=== PATIENT | female | born 1940 | race Caucasian/White ===

== ENCOUNTER 2021-07-14 20:19 | Emergency (ER) | payer OTHER, MEDICAID ==
[~2021-07-14] VITALS: Ht 165.1 cm; Wt 77.1 kg
[2021-07-14 20:24] VITALS: BP_SYST 109
--- NOTE | 2021-07-14 20:24 | NUR ---
Patient to ER bed GRACE to gown for evaluation. Side rails up. Report given to SREE VILLA.
--- NOTE | 2021-07-14 20:52 | NUR ---
Dr. Orozco at bedside and place G-tube size 20 FR
--- NOTE | 2021-07-14 21:01 | NUR ---
X-ray at bedside.
[2021-07-14] MEDS ORDERED: GASTROGRAFIN 120 ML ONE (21:02)
--- NOTE | 2021-07-14 21:08 | NUR ---
Attempted to call [facility], no one sheepskin pickler phone and can not leave message.
--- NOTE | 2021-07-14 21:12 | NUR ---
Patient's caregiver given written and verbal discharge instructions and verbalizes understanding. ER MD discussed with patient's caregiver the results and treatment provided. Patient in stable condition. ID arm band removed. No Rx given. Patient's caregiver educated on pain management and to follow up with PMD. Pain Scale 0/10. Opportunity for questions provided and answered.
[2021-07-14 21:14] VITALS: BP_SYST 109
--- NOTE | 2021-07-14 21:14 | NUR ---
Patient will transfer back to facility by BLS/EMS.
== END 2021-07-14 21:14 | disposition home or self-care (01) ==
LOC: SED 20:19
DX: K94.23 Gastrostomy malfunction (principal)
CPT/HCPCS: 43762; 74240; 99284; Q9963

== ENCOUNTER 2022-07-03 20:42 | Emergency (ER) | payer OTHER, MEDICAID ==
[~2022-07-03] VITALS: Ht 162.6 cm; Wt 79.4 kg
[2022-07-03 20:49] VITALS: BP_SYST 98
--- NOTE | 2022-07-03 20:54 | NUR ---
PT HERE BIB BLS TRANSPORT FOR GTUBE REPLACEMENT, PER REPORT PT GTUB HAS BEEN DISLODGED SINCE THIS MORNING. PENDING MD MARTINI
--- NOTE | 2022-07-04 00:24 | NUR ---
ER at bedside examining patient.
--- NOTE | 2022-07-04 00:30 | NUR ---
Gtube replaced by Sisi. Pt tolerated procedure well. 18F GTube inserted. Xray ordered for placement confirmation.
[2022-07-04] MEDS ORDERED: GASTROGRAFIN 120 ML ONE (01:04)
--- NOTE | 2022-07-04 02:17 | NUR ---
S Transportation arranged for machine operator hop picker back to [facility]. ETA is [phone].
--- NOTE | 2022-07-04 03:00 | NUR ---
Pt resting comfortably in bed, no acute signs of distress. Breathing adequately on RA. VSS.
--- NOTE | 2022-07-04 05:58 | NUR ---
SPOKE TO [facility], [facility] FOR PICK-UP AT APROX 0625.
[2022-07-04 06:49] VITALS: BP_SYST 140
--- NOTE | 2022-07-04 06:50 | NUR ---
Patient transferred back to [facility]. Copy of nursing notes/discharge instructions sent with patient. Report called to Flora at receiving facility. Pt care endorsed to EMT's from [facility].
== END 2022-07-04 06:50 | disposition home or self-care (01) ==
LOC: SED 20:42
DX: Z43.1 Encounter for attention to gastrostomy (principal); E11.9 Type 2 diabetes mellitus without complications; Z79.899 Other long term (current) drug therapy
CPT/HCPCS: 99285; 43762; 74240; Q9963

== ENCOUNTER 2022-08-05 13:25 | Emergency (ER) | payer OTHER, MEDICAID ==
[~2022-08-05] VITALS: Ht 167.6 cm; Wt 81.6 kg
[~2022-08-05 13:25] MED LIST: ACET-73 GT; ACET325T GT; ALEN10TA25 GT; ASCO500T20 GT; ASPI-1155 GT; BISA10SU61 RC; COR3.125 GT; FURO-150 GT; INSU100V42 SQ; INSU100V9 SQ; LIP40 GT; LOSA50TA3 GT; MAGN24002 GT; MULT-1089 GT; TRAM50TA2 PO
[2022-08-05 13:30] VITALS: BP_SYST 152
--- NOTE | 2022-08-05 13:30 | NUR ---
Patient to ER bed HALLWAY to gown for evaluation. Side rails up.
--- NOTE | 2022-08-05 13:35 | NUR ---
PT BIBA FROM [facility] FOR BLEEDING FROM G-TUBE, ON ARRIVAL NO BLEEDING NOTED. VSS
--- NOTE | 2022-08-05 14:32 | NUR ---
ER DR. KENNEDY EXAMINING PT
--- NOTE | 2022-08-05 14:41 | NUR ---
Patient given written and verbal discharge instructions and verbalizes understanding. ER MD discussed with patient the results and treatment provided. Patient in stable condition. ID arm band removed. NO Rx given. Patient educated on pain management and to follow up with PMD. Pain Scale 0/10. Opportunity for questions provided and answered. Medication side effect fact sheet provided.
--- NOTE | 2022-08-05 14:45 | NUR ---
REPORT GIVEN TO ORLIN FOR TRANSPORT BACK TO [facility]
== END 2022-08-05 14:37 ==
LOC: SED 13:25
DX: K94.23 Gastrostomy malfunction (principal); E11.9 Type 2 diabetes mellitus without complications; I10 Essential (primary) hypertension; E78.5 Hyperlipidemia, unspecified; Z79.4 Long term (current) use of insulin; Z79.899 Other long term (current) drug therapy
CPT/HCPCS: 99281

== ENCOUNTER 2023-04-15 05:19 | Inpatient (IN) | payer OTHER, MEDICAID ==
[~2023-04-15] VITALS: Ht 162.6 cm; Wt 86.2 kg
[2023-04-15 05:30] VITALS: BP_SYST 134; PULSE 84; RESP 20; TEMP 98.4; O2SAT 99
--- NOTE | 2023-04-15 05:30 | NUR ---
PT BIB AMBULANCE - BLS FROM [facility]. PT A&Ox1, ABLE TO VERBALIZE PAIN. PER BLS STAFF PT'S GTUBE BLEEDING. BLOOD NOTED ON GAUZE AND REDNESS ON PT'S SKIN AROUND GTUBE. SAFETY PRECAUTIONS IN PLACE.
--- NOTE | 2023-04-15 06:10 | NUR ---
ER Dr. SALDANA at bedside examining patient.
[2023-04-15 06:13] LABS: BASOPHILS % (AUTO) 0.3 % (0.0-2.0); EOSINOPHILS # (AUTO) 0.1 K/uL (0.0-0.4); EOSINOPHILS % (AUTO) 1.1 % (0.0-4.0); HEMATOCRIT 36.4 % (36-48); HEMOGLOBIN 11.3 g/dL (12.0-16.0); LYMPHOCYTES # (AUTO) 2.2 K/uL (1.0-5.5); LYMPHOCYTES % (AUTO) 15.7 % (20.5-51.5); MEAN CORPUSCULAR HEMOGLOBIN 25 pg (27-31); MEAN CORPUSCULAR HGB CONC 31 % (32-36); MEAN CORPUSCULAR VOLUME 80 fL (79.0-98.0); MONOCYTES % (AUTO) 7.3 % (1.7-9.3); NEUTROPHILS # (AUTO) 10.4 K/uL (1.8-7.7); NEUTROPHILS % (AUTO) 75.6 % (40.0-70.0); PLATELET COUNT (AUTO) 503 K/uL (130-430); RED BLOOD CELL COUNT(AUTO) 4.55 MIL/uL (4.2-6.2); RED CELL DISTRIBUTION WIDTH 16.6 % (9.0-15.0); WHITE BLOOD COUNT (AUTO) 13.8 K/uL (4.8-10.8)
[2023-04-15 06:26] LABS: ANION GAP 5 (5-15); CALCIUM 8.3 mg/dL (8.4-11.0); CHLORIDE 95 mmol/L (98-107); CREATININE 0.45 mg/dL (0.55-1.30); GLUCOSE 168 mg/dL (74-106); UREA NITROGEN, BLOOD 16 mg/dL (8-21)
[2023-04-15 06:27] LABS: PROTHROMBIN TIME 10.2 SECS (9.5-12.5)
[2023-04-15 06:30] LABS: ALANINE AMINOTRANSFERASE 21 U/L (12-78); ALBUMIN 2.7 g/dL (3.4-4.8); ASPARTATE AMINOTRANSFERASE 21 U/L (10-37); LIPASE 62 U/L (73-393); TOTAL BILIRUBIN 0.3 mg/dL (0.0-1.0)
--- NOTE | 2023-04-15 07:05 | NUR ---
Gave report to oncoming nurse DAISY Kearney to resume continuity of care.
--- NOTE | 2023-04-15 07:58 | NUR ---
REPORT RECEIVED, PT SITTING UP IN BED, EYES CLOSED, UNABLE TO OPEN EYES TO VOICE OR TACTILE STIMULATION, FACIAL GRIMACING ONLY WITH PAINFUL STILMULI, UNABLE TO FOLLOW SIMPLE COMMANDS. G-TUBE IN PLACE, PATENT-FLUSHING WELL, DRY BLOOD NOTED AROUND SITE. PT TOLERATED WELL. VSS, WILL CONT TO MONITOR.
[2023-04-15] MEDS ORDERED: ONDANSETRON HCL 4 MG/2 ML VIAL IVP PRN (10:15)
[2023-04-15] MEDS ORDERED: LORazepam 2 MG/ML VIAL IVP PRN (10:15)
--- NOTE | 2023-04-15 10:33 | NUR ---
CONSULTATION PAGED/CALLED Reason for Consultation: LEUKOCYTOSIS Person Who was Notified: BLANCHE [phone] Consulting Physician: Betty MELENDEZ Student Outreach Coordinator Specialty: ID Ordering Physician: Soledad PRITCHETT
[2023-04-15] MEDS: PANTOPRAZOLE SODIUM 40 MG/VIAL (PROTONIX) IVP SCH ×2 (10:46→21:47)
--- NOTE | 2023-04-15 11:06 | NUR ---
REPORT GIVEN TO CYNTHIA VILLA, UPDATED ON STATUS, LABS, AND VITALS. PT STABLE FOR TRANSFER.
--- NOTE | 2023-04-15 11:45 | NUR ---
Patient will be admitted to care of DR WONG. Admitted to MS unit. Will go to room 119B. Belongings list completed. Complete and up to date summary report printed. SBAR report to be given at bedside with opportunity for questions.
--- NOTE | 2023-04-15 12:42 | NUR ---
CONSULTATION PAGED/CALLED Reason for Consultation: GI BLEED Person Who was Notified: MOOK [phone] Consulting Physician: DR JONES Barn Manager Specialty: GI Ordering Physician: Soledad PRITCHETT
[2023-04-15] MEDS: D5/0.45 NS 1,000 ML IV SCH ×2 (12:47→23:52)
[2023-04-15] MEDS: INSULIN REGULAR, HUMAN 100 UNITS/ML, 3 ML VIAL (humuLIN R) SUBCUT PRN ×3 (12:50→23:51)
[2023-04-15 13:00] VITALS: BP_SYST 102; PULSE 82; RESP 16; TEMP 97.8
[2023-04-15 14:14] VITALS: O2SAT 96
--- NOTE | 2023-04-15 18:05 | NUR ---
ADMISSION: The patient, SANDI BROWNING, 82 y/o, F admitted by RHONA WONG MD, was given written information regarding hospital policies, unit procedures and contact persons. NO Valuables WITH PATIENT, SPOKE WITH THE DAUGHTER AND VERIFIED THAT PT DOES NOT HAVE ANY VALUABLES .
[2023-04-15 20:00] VITALS: BP_SYST 122; PULSE 74; RESP 17; TEMP 97.5; O2SAT 98
--- NOTE | 2023-04-15 20:00 | NUR ---
OPENING NOTES PATIENT IS LYING IN BED AXO 2 WITH NO S/S OF DISTRESS OR DISCOMFORT. DAUGHTER IS AT BEDSIDE WITH PATIENT. BREATHING IS EQUAL AND UNLABORED ON RA. VSS. IVF ARE RUNNING. SAFETY CHECKS DONE AND CALL LIGHT WITHIN REACH. WILL CONTINUE TO MONITOR.
--- NOTE | 2023-04-16 | NUR ---
B/S BLOOD SUGAR CHECK WAS 169, GAVE 2 UNITS OF INSULIN. WILL CONTINUE TO MONITOR
[2023-04-16 00:12] VITALS: BP_SYST 123; PULSE 70; RESP 18; TEMP 96.6; O2SAT 98
[2023-04-16 02:21] VITALS: O2SAT 98
[2023-04-16] MEDS ORDERED: cefTRIAXone 1 GM in D5W 50 ML IV ONE (04:00)
[2023-04-16] MEDS ORDERED: cefTRIAXone 1 GM VIAL ONE (05:29)
[2023-04-16] MEDS: INSULIN REGULAR, HUMAN 100 UNITS/ML, 3 ML VIAL (humuLIN R) SUBCUT PRN (06:11)
[2023-04-16] MEDS: D5/0.45 NS 1,000 ML IV SCH ×2 (06:15→16:22)
[2023-04-16 06:44] LABS: BASOPHILS % (AUTO) 0.5 % (0.0-2.0); EOSINOPHILS # (AUTO) 0.1 K/uL (0.0-0.4); EOSINOPHILS % (AUTO) 1.1 % (0.0-4.0); HEMATOCRIT 28.5 % (36-48); HEMOGLOBIN 9.1 g/dL (12.0-16.0); LYMPHOCYTES % (AUTO) 22.6 % (20.5-51.5); MEAN CORPUSCULAR HEMOGLOBIN 25 pg (27-31); MEAN CORPUSCULAR HGB CONC 32 % (32-36); MEAN CORPUSCULAR VOLUME 79 fL (79.0-98.0); MONOCYTES # (AUTO) 0.7 K/uL (0.0-1.0); NEUTROPHILS # (AUTO) 6.1 K/uL (1.8-7.7); NEUTROPHILS % (AUTO) 67.8 % (40.0-70.0); PLATELET COUNT (AUTO) 427 K/uL (130-430); RED CELL DISTRIBUTION WIDTH 16.5 % (9.0-15.0)
[2023-04-16 07:09] LABS: ALANINE AMINOTRANSFERASE 12 U/L (12-78); ALBUMIN 2.3 g/dL (3.4-4.8); ANION GAP 4 (5-15); ASPARTATE AMINOTRANSFERASE 20 U/L (10-37); CALCIUM 7.9 mg/dL (8.4-11.0); CHLORIDE 98 mmol/L (98-107); CREATININE 0.44 mg/dL (0.55-1.30); GLUCOSE 196 mg/dL (74-106); TOTAL BILIRUBIN 0.3 mg/dL (0.0-1.0); UREA NITROGEN, BLOOD 13 mg/dL (8-21)
--- NOTE | 2023-04-16 07:23 | NUR ---
CLOSING NOTES PATIENT IS LYING IN BED AXO 1 WITH NO S/S OF DISTRESS OR DISCOMFORT. BREATHING IS EQUAL AND UNLABORED ON RA. IVF ARE RUNNING. BLOOD SUGAR WAS 192 GAVE 2 UNITS ON INSULIN PER SLIDING SCALE. CHANGED LINENS AND PATIENT. ALL NEEDS WERE MET AT THIS TIME. SAFETY CHECKS DONE AND CALL LIGHT WITHIN REACH,
[2023-04-16 08:00] VITALS: BP_SYST 142; PULSE 79; RESP 18; TEMP 96.8; O2SAT 98
[2023-04-16] MEDS: PANTOPRAZOLE SODIUM 40 MG/VIAL (PROTONIX) IVP SCH ×2 (09:48→22:52)
[2023-04-16] MEDS ORDERED: KCL 40 mEq in 100 mL (PREMIX) 100 ML IV ONE (10:45)
[2023-04-16] MEDS: POTASSIUM CHLORIDE 20 mEq in 100 mL (PREMIX) 100 ML x 2 doses IV SCH ×2 (11:00→13:00)
[2023-04-16 16:00] VITALS: BP_SYST 149; PULSE 56; RESP 18; TEMP 97.8; O2SAT 100
--- NOTE | 2023-04-16 16:18 | NUR ---
Dietitian Recommendations * When medically appropriate: Recommend Glucerna 1.2 @ 55ml/hr, Alex BID, FWF 100ml Q8h via GT. Provides daily (w/ Alex, D5NS @50ml/hr): 1948kcal, 84g protein, 1563ml free water. Meets: 98% of upper end of estimated caloric needs, 99% of upper end of estimated protein needs, 92% of upper end of estimated fluid needs. Please see Nutrition Assessment for more details. GRETEL AREVALO Trainee Addendum: 04/16/23 at [address] Amended: Links added.
[2023-04-16 19:00] VITALS: BP_SYST 124; PULSE 84; RESP 16; TEMP 97.8; O2SAT 98
[2023-04-16 20:00] VITALS: BP_SYST 124; PULSE 83; RESP 16; TEMP 97.8; O2SAT 100
--- NOTE | 2023-04-16 20:00 | NUR ---
OPENING NOTES PATIENT IT IS LYING IN BED WITH DAUGHTER AT BEDSIDE AXO1 WITH NO S/S OF DISTRESS OR DISCOMFORT. BREATHING IS EQUAL AND UNLABORED ON RA. VSS. IVF RUNNING. SAFETY CHECKS ARE DONE, CALL LIGHT WITH IN REACH AND WILL CONTINUE TO MONITOR.
[2023-04-16] MEDS: MENTHOL/ZINC OXIDE 113 GM OINT. TP SCH (22:30)
[2023-04-16] MEDS: cefTRIAXone 1 GM in D5W 50 ML IV SCH (22:51)
--- NOTE | 2023-04-16 23:51 | NUR ---
B/S AND DRESSING CHANGE B/S WAS 149, NO INSULIN COVERAGE NEEDED PER SLIDING SCALE. CHANGED PATIENT AND DRESSING ON SACRUM. SMALL BOWEL MOVEMENT WITH URINE. SAFETY CHECKS DONE, CALL LIGHT IN REACH AND WILL CONTINUE TO MONITOR.
[2023-04-17 01:17] VITALS: BP_SYST 146; PULSE 89; RESP 16; TEMP 97.6; O2SAT 98
[2023-04-17] MEDS: D5/0.45 NS 1,000 ML IV SCH ×3 (02:15→22:38)
--- NOTE | 2023-04-17 02:56 | NUR ---
ROUNDS PATIENT IS ASLEEP IN BED NO S/S OF DISTRESS OR DISCOMFORT. IVF ARE RUNNING. BREATHING IS EQUAL AND UNLABORED ON RA. SAFETY CHECKS ARE DONE CALL LIGHT IN REACH. WILL CONTINUE TO MONITOR.
--- NOTE | 2023-04-17 04:33 | NUR ---
NOTES PATIENT HAD BOWEL MOVEMENT. CLEANED UP PATIENT AND CHANGED LINENS. ATTEMPTED TO DO A STRAIGHT CATH FOR URINE URINALYSIS BUT NO URINE RETURNED. SAFETY CHECKS DONE AND CALL LIGHT IN REACH
[2023-04-17 06:22] LABS: BASOPHILS # (AUTO) 0.1 K/uL (0.0-0.2); BASOPHILS % (AUTO) 0.9 % (0.0-2.0); EOSINOPHILS # (AUTO) 0.1 K/uL (0.0-0.4); EOSINOPHILS % (AUTO) 1.6 % (0.0-4.0); HEMATOCRIT 27.5 % (36-48); HEMOGLOBIN 8.8 g/dL (12.0-16.0); LYMPHOCYTES # (AUTO) 1.8 K/uL (1.0-5.5); MEAN CORPUSCULAR HEMOGLOBIN 25 pg (27-31); MEAN CORPUSCULAR HGB CONC 32 % (32-36); MEAN CORPUSCULAR VOLUME 79 fL (79.0-98.0); MONOCYTES # (AUTO) 0.5 K/uL (0.0-1.0); MONOCYTES % (AUTO) 6.7 % (1.7-9.3); NEUTROPHILS # (AUTO) 5.3 K/uL (1.8-7.7); NEUTROPHILS % (AUTO) 67.8 % (40.0-70.0); PLATELET COUNT (AUTO) 422 K/uL (130-430); RED BLOOD CELL COUNT(AUTO) 3.48 MIL/uL (4.2-6.2); RED CELL DISTRIBUTION WIDTH 16.2 % (9.0-15.0); WHITE BLOOD COUNT (AUTO) 7.9 K/uL (4.8-10.8)
[2023-04-17 06:29] LABS: ERYTHROCYTE SEDIMENTATION RATE 51 MM/HR (0-20)
[2023-04-17 06:32] LABS: ANION GAP 8 (5-15); CALCIUM 7.9 mg/dL (8.4-11.0); CHLORIDE 99 mmol/L (98-107); CREATININE 0.43 mg/dL (0.55-1.30); GLUCOSE 141 mg/dL (74-106); UREA NITROGEN, BLOOD 7 mg/dL (8-21)
--- NOTE | 2023-04-17 06:58 | NUR ---
CLOSING NOTES PATIENT IS LYING IN BED AXO 1 WITH NO S/S OF DISTRESS OR DISCOMFORT. BREATHING IS EQUAL AND UNLABORED ON RA. BLOOD SUGAR WAS 132 NO INSULIN COVERAGE NEEDED. ALL NEEDS WERE MET AT TIME. SAFETY CHECKS DONE, CALL LIGHT IN REACH.
[2023-04-17] MEDS: MENTHOL/ZINC OXIDE 113 GM OINT. TP SCH ×2 (08:57→21:15)
[2023-04-17] MEDS: PANTOPRAZOLE SODIUM 40 MG/VIAL (PROTONIX) IVP SCH ×2 (08:57→21:16)
[2023-04-17] MEDS ORDERED: fentaNYL CITRATE/PF 100 MCG/2 ML AMP ONE (10:38)
[2023-04-17] MEDS ORDERED: MIDAZOLAM HCL 5 MG/5 ML VIAL ONE (10:38)
[2023-04-17 13:00] VITALS: BP_SYST 133; PULSE 75; RESP 14; TEMP 97.7; O2SAT 96
[2023-04-17 16:19] VITALS: BP_SYST 143; PULSE 77; RESP 12; TEMP 97.4; O2SAT 96
--- NOTE | 2023-04-17 16:30 | NUR ---
WOUND EVALUATION: Wound Consult received from . Thank you, , for the consult. Patient received in a Chiquis Bed with an Isoflex ANASTACIO mattress, awake, nonverbal, nonresponsive to verbal commands. Patient is unable to turn in bed independently. Harvey Score is an 11. Past Medical History: Colon Cancer, Gastric tube with tube feeding, CHF, Hyperlipidemia, Diabetes Mellitus Type 2, CVA, Dementia, Dysphagia. Recent Labs: WBC 7.9, RBC 3.48, hemoglobin 8.8, hematocrit 27.5, ESR 51, sodium 133, BUN 7, creatinine 0.43, glucose 141, calcium 7.9, serum total protein 6.2, albumin 2.3. Microbiology: Blood culture results x2 negative. MRSA screen results negative. Abdominal wound culture results positive for few gram-negative rods, many gram-positive cocci, and moderate yeast. Intrinsic factors that delay wound healing: Colon Cancer, Diabetes Mellitus Type 2, Hyperglycemia, Hypoalbuminemia. Extrinsic factors that delay wound healing: Immobility. Wound Assessment: 1. Sacral-Coccygeal area: Unstageable pressure ulcer, present on admission. Wound bed has 5% pink tissue, 95% yellow tissue. No odor, no drainage. Periwound intact. Wound measures 3.0 cm x 1.9 cm x 0.7 cm. Recommend: Cleanse wound with normal saline. Apply moisture barrier cream to sher-wound. Apply Venelex ointment to wound bed. Cover with foam dressing. Perform wound care daily, and as needed for dressing soiling or dislodgement. 2. Abdomen: Wound, present on admission. Wound bed has 100% pink tissue. No odor, no drainage. Periwound intact. Wound measures 1.9 cm x 5.3 cm. Recommend: Cleanse wound with normal saline. Apply moisture barrier cream to sher-wound. Apply Venelex ointment to wound bed. Cover with foam dressing. Perform wound care daily, and as needed for dressing soiling or dislodgement. 3. Right Medial Heel: Area of dark discoloration underneath the skin, present on admission. Possible prior wound site, suspect prior pressure injury. No odor, no drainage. Site measures 3.3 cm x 3.5 cm. Recommend: [place] site with Betadine. Allow Betadine to air dry. Cover site with foam dressing for protection. Offload site at all times with pillow. 4. Right Medial Forearm: Scar tissue, present on admission. Recommend: Cover site with foam dressing for protection. Offload site at all times with pillow. 5. Right Wrist/Forearm: Dark discolored ecchymosis, present on admission. 6. Left Dorsal Wrist Purple and black ecchymosis, present on admission. No odor, no drainage. Recommend: No dressings needed. Continue to monitor sites every shift. Also recommend: Reposition patient side to side only every 2 hours with pillow support and off-load pressure areas with pillows for pressure re-distribution. Offload, elevate and float bilateral heels with 1 pillow lengthwise under each extremity at all times. Perform skin care and monitor skin integrity Q shift. Use moisture barrier cream on buttocks and other moisture susceptible areas QID and as needed for soiling. Place patient on a P500 low air-loss mattress.
[2023-04-17] MEDS: INSULIN REGULAR, HUMAN 100 UNITS/ML, 3 ML VIAL (humuLIN R) SUBCUT PRN (18:15)
[2023-04-17 20:07] VITALS: BP_SYST 137; PULSE 76; RESP 16; TEMP 97.2; O2SAT 97
[2023-04-17] MEDS: cefTRIAXone 1 GM in D5W 50 ML IV SCH (21:15)
[2023-04-18 00:03] VITALS: BP_SYST 135; PULSE 76; RESP 18; TEMP 97.3; O2SAT 97
[2023-04-18] MEDS: INSULIN REGULAR, HUMAN 100 UNITS/ML, 3 ML VIAL (humuLIN R) SUBCUT PRN ×3 (00:11→11:52)
[2023-04-18 04:48] LABS: ERYTHROCYTE SEDIMENTATION RATE 35 MM/HR (0-20)
[2023-04-18 04:58] LABS: EOSINOPHILS # (AUTO) 0.5 K/uL (0.0-0.4); EOSINOPHILS % (AUTO) 5.3 % (0.0-4.0); HEMATOCRIT 25.6 % (36-48); HEMOGLOBIN 8.2 g/dL (12.0-16.0); LYMPHOCYTES # (AUTO) 0.9 K/uL (1.0-5.5); LYMPHOCYTES % (AUTO) 10.5 % (20.5-51.5); MEAN CORPUSCULAR HEMOGLOBIN 25 pg (27-31); MEAN CORPUSCULAR HGB CONC 32 % (32-36); MEAN CORPUSCULAR VOLUME 79 fL (79.0-98.0); MONOCYTES # (AUTO) 1.4 K/uL (0.0-1.0); MONOCYTES % (AUTO) 15.8 % (1.7-9.3); NEUTROPHILS # (AUTO) 5.9 K/uL (1.8-7.7); NEUTROPHILS % (AUTO) 68.4 % (40.0-70.0); PLATELET COUNT (AUTO) 421 K/uL (130-430); RED BLOOD CELL COUNT(AUTO) 3.23 MIL/uL (4.2-6.2); RED CELL DISTRIBUTION WIDTH 16.3 % (9.0-15.0); WHITE BLOOD COUNT (AUTO) 8.6 K/uL (4.8-10.8)
[2023-04-18 05:19] LABS: ALANINE AMINOTRANSFERASE 21 U/L (12-78); ALBUMIN 2.2 g/dL (3.4-4.8); ANION GAP 5 (5-15); ASPARTATE AMINOTRANSFERASE 26 U/L (10-37); CALCIUM 7.7 mg/dL (8.4-11.0); CHLORIDE 101 mmol/L (98-107); CREATININE 0.42 mg/dL (0.55-1.30); GLUCOSE 175 mg/dL (74-106); TOTAL BILIRUBIN 0.2 mg/dL (0.0-1.0); UREA NITROGEN, BLOOD 9 mg/dL (8-21)
--- NOTE | 2023-04-18 06:47 | NUR ---
Called and spoke with Mario Urbina regarding GT feeding with new order, readback telephone order with agreement. Noted and carried out.
[2023-04-18 07:00] VITALS: O2SAT 98
--- NOTE | 2023-04-18 07:00 | NUR ---
OPENING NOTES PATIENT IS RESTING, BREATHING UNLABORED ON RA. NO PAIN, NO DISTRESS, NO SOB, NO NAUSEA REPORTED. G TUBE RUNNING WELLED. ALL NEED MET AT THIS TIME. CALL LIGHT WITHIN REACH. BED ALARM ON. BED LOCKED IN LOWEST POSITION. IVF INFUSING WELLED. WILL CONTINUE WITH PLAN OF CARE.
[2023-04-18] MEDS: MENTHOL/ZINC OXIDE 113 GM OINT. TP SCH (09:00)
[2023-04-18] MEDS: D5/0.45 NS 1,000 ML IV SCH (09:00)
[2023-04-18] MEDS ORDERED: BALSAM PERU/CASTOR OIL 56.7 GM OINT...G. TP SCH (09:00)
[2023-04-18] MEDS: PANTOPRAZOLE SODIUM 40 MG/VIAL (PROTONIX) IVP SCH (10:02)
[2023-04-18] MEDS ORDERED: CALMO120 TP (10:11)
[2023-04-18] MEDS ORDERED: PRO40 GT (10:11)
[2023-04-18] MEDS ORDERED: AMOX-423 GT (10:11)
[2023-04-18 12:06] VITALS: BP_SYST 155; PULSE 61; RESP 17; TEMP 97.5; O2SAT 98
[2023-04-18 12:32] VITALS: BP_SYST 119; PULSE 96; RESP 17; TEMP 98.1; O2SAT 98
--- NOTE | 2023-04-18 13:49 | NUR ---
D/C Patient Patient is being transfer to [facility]. Patient Daughter is notified. Report given to Cristal from [facility]. Patient given medication reconciliation form and D/C instructions in a packet that will be send with medic to the nursing facility. Exit Care provided. Patient verbalized understanding. discussed with patient the results and treatment provided. Patient is being picked up by [facility]. Patient in stable condition, ID band removed. IV catheter removed. Tube feeding is disconnected. intact and dressing applied, no active bleeding.
[2023-04-18 14:44] VITALS: BP_SYST 132; PULSE 61; RESP 16; TEMP 97.1; O2SAT 97
== END 2023-04-18 13:49 | DRG 871 ==
LOC: SED 05:19 → SMU 07:27
PROVIDERS: ADMIT Preventive Medicine Preventive Medicine/Occupational Environmental Medicine; ATTEND Preventive Medicine Preventive Medicine/Occupational Environmental Medicine
PROC: 0DB58ZX Excision of Esophagus, Via Natural or Artificial Opening Endoscopic, Diagnostic (ICD-10-PCS; principal; 2023-04-17 14:30)
PROC: 0D20XUZ Change Feeding Device in Upper Intestinal Tract, External Approach (ICD-10-PCS; 2023-04-17 14:30)
DX: A41.9 Sepsis, unspecified organism (principal); E43 Unspecified severe protein-calorie malnutrition; K29.71 Gastritis, unspecified, with bleeding; K20.91 Esophagitis, unspecified with bleeding; I69.359 Hemiplegia and hemiparesis following cerebral infarction affecting unspecified side; E87.1 Hypo-osmolality and hyponatremia; L03.311 Cellulitis of abdominal wall; K94.22 Gastrostomy infection; C18.9 Malignant neoplasm of colon, unspecified; D64.9 Anemia, unspecified; I10 Essential (primary) hypertension; E88.09 Other disorders of plasma-protein metabolism, not elsewhere classified; E78.5 Hyperlipidemia, unspecified; E11.65 Type 2 diabetes mellitus with hyperglycemia; E87.6 Hypokalemia; K94.21 Gastrostomy hemorrhage; F03.90 Unspecified dementia, unspecified severity, without behavioral disturbance, psychotic disturbance, mood disturbance, and anxiety; R13.10 Dysphagia, unspecified; M81.0 Age-related osteoporosis without current pathological fracture; E83.51 Hypocalcemia; K56.41 Fecal impaction; S30.811A Abrasion of abdominal wall, initial encounter; X58.XXXA Exposure to other specified factors, initial encounter; Z86.718 Personal history of other venous thrombosis and embolism; Z85.038 Personal history of other malignant neoplasm of large intestine; Z79.4 Long term (current) use of insulin; Z79.899 Other long term (current) drug therapy; Y93.89 Activity, other specified; Y92.89 Other specified places as the place of occurrence of the external cause; Y99.8 Other external cause status
CPT/HCPCS: 36415; 43235; 74018; 80048; 80053; 83690; 85025; 85610-TC; 85651-TC; 86886; 86900; 86901; 87040; 87070-TC; 87081; 87186-TC; 88305; 88313; 99291; C9113; J0696; J2250; J3010; J3480; J7060